=== PATIENT | female | born 1990 | race American Indian/Alaskan Native ===

== ENCOUNTER 2018-03-28 08:51 | Emergency (ER) | payer OTHER ==
[2018-03-28] MEDS ORDERED: XYLOCAINE 2% INFILTRATI ONE (09:50)
--- NOTE | 2018-03-28 10:03 | Emergency Department Report ---
Abscess Boil HPI - HPI Chief Complaint: Pain General Stated Complaint: BOIL ON VAGINAL/8MONTHS PAIN Time Seen by Provider: 03/28/18 09:33 Duration: 4 Days Location: Other (l labia) History: Yes Pain, No Fever, No Purulent Drainage, No Numbness, No Foreign Body , No Previous History, No Insect Bite Home Medications: Previous Rx's Medication Instructions Recorded Last Taken Type Amoxicillin 500 mg PO BID #20 capsule 03/28/18 Unknown Rx ED Review of Systems ROS: Stated complaint: BOIL ON VAGINAL/8MONTHS PAIN Other details as noted in HPI Comment: All other systems reviewed and negative Constitutional: no symptoms reported Respiratory: no symptoms reported Endocrine: no symptoms reported Genitourinary: other (8 m preg; no abn vag dc; no abd pain; baby moving). denies: urgency, dysuria, frequency, hematuria, discharge, abnormal menses, dyspareunia Skin: lesions (l labial lesion p shaving) ED Past Medical Hx - Past Medical History Previous Medical History?: No Additional medical history: pregeant 8 months - Surgical History Past Surgical History?: No - Social History Smoking Status: Never Smoker - Medications Home Medications: Home Medications Medication Instructions Recorded Confirmed Last Taken Type Amoxicillin 500 mg PO BID #20 capsule 03/28/18 Unknown Rx ED Abscess Boil Physical Exam - Exam General: Vital signs noted. No distress. Alert and acting appropriately. Front/Back of Body, Lg (Color): 1 - l labia Size: 2 cm Exam: Yes Tenderness, Yes Fluctuance, No Surrounding Cellulites/Erythema, No Lymphangitis, No Crepitation, No Heart Murmur, No Normal Neurologic Exam, No Normal Circulation I & D Note - I & D Note I & D Note: 2% lido 2 ml for pain. small opening w no 10 blade. mod drainage. this is high labial left lesion. not b cyst. no packing. pain relief w i/ d. medicated w tylenol for pain. tolerated well ED Course Vital Signs 03/28/18 09:13 Temperature 98.0 F Pulse Rate 91 H Blood Pressure 109/65 O2 Sat by Pulse 98 Oximetry - Reevaluation(s) Reevaluation #1: 03/28/18 11:52 i/d tolerated well tylenol for pain amox po instructed to notify OB dc home w dc instructions Critical care attestation.: If time is entered above; I have spent that time in minutes in the direct care of this critically ill patient, excluding procedure time. ED Medical Decision Making - Differential Diagnosis simple abscess v misbah. cyst ED Disposition Clinical Impression: Left genital labial abscess Disposition: DC-01 TO HOME OR SELFCARE Is pt being admited?: No Does the pt Need Aspirin: No Condition: Stable Instructions: Abscess (ED) Additional Instructions: follow up with ob tylenol for pain epsom salts three times per day warm compresses antibiotic as ordered NOT BARTHOL. CYST Do not shave Prescriptions: Amoxicillin 500 mg PO BID #20 capsule Referrals: PRIMARY CARE, [Primary Care Provider] - 3-5 Days Time of Disposition: 11:26
[2018-03-28] MEDS ORDERED: XYLOCAINE MPF 2% INFILTRATI ONE (11:00)
[2018-03-28] MEDS ORDERED: TYLENOL PO ONE (11:28)
[2018-03-28 11:59] VITALS: BP 113/71
== END 2018-03-28 12:03 | disposition home or self-care (01) ==
LOC: ED 08:51
DX: O26.891 Other specified pregnancy related conditions, first trimester (principal); O23.591 Infection of other part of genital tract in pregnancy, first trimester; Z3A.08 8 weeks gestation of pregnancy
CPT/HCPCS: 99282